=== PATIENT | female | born 1940 | race African-American/Black ===

== ENCOUNTER 2018-02-08 08:44 | Emergency (ER) | payer OTHER ==
[~2018-02-08] VITALS: Ht 30.5 cm; Wt 44.5 kg
[2018-02-08] MEDS ORDERED: SODIUM BICARBONATE 8.4% INJ 50ML SYRINGE IV ONE (08:45)
[2018-02-08] MEDS ORDERED: CALCIUM CHLOR(10%) 100MG/ML 10ML SYRINGE IV ONE (08:45)
[2018-02-08] MEDS ORDERED: EPINEPHrine HCL 1 MG/10 ML SYRG IV ONE (08:45)
[2018-02-08 08:50] VITALS: BP 137/96
[2018-02-08] MEDS ORDERED: ACETAMINOPHEN 650 MG RECT SUPP PR ONE ×2 (09:36→10:45)
[2018-02-08] MEDS ORDERED: NOREPINEPHRINE 8 MG/250ML KIT 250 ML IV ONE (09:40)
[2018-02-08 09:54] LABS: Urine Amorphous Crystal MOD /hpf (None Seen); Urine Bacteria FEW /hpf (None Seen); Urine Blood 1+ /uL (Negative); Urine Mucus FEW (None Seen); Urine Specific Gravity 1.022 (1.001-1.035); Urine WBC 6 /hpf (0 - 5); Urine WBC Clumps PRESENT /hpf (None Seen)
[2018-02-08] MEDS ORDERED: cefTRIAXone 1GM/10ml IVPUSH 10 ML IV ONE ×2 (10:17→10:45)
[2018-02-08 10:21] LABS: Hemoglobin 7.2 g/dL (12.2-16.2)
[2018-02-08 10:22] LABS: Hematocrit 25.4 % (36.0-46.0); Mean Corpuscular Hemoglobin 29.1 pg (28.0-32.0); Mean Corpuscular Hgb Conc. 28.6 g/dL (32.0-36.0); Mean Corpuscular Volume 101.7 fL (80.0-100.0); Platelet Count (auto) 137 10^3/uL (140-450); Red Blood Cells 2.49 10^6/uL (4.0-5.20); Red Cell Distribution Width 16.7 % (11.8-14.3); White Blood Cell 11.3 10^3/uL (4.4-10.8)
[2018-02-08 10:26] LABS: Basophils % (manual) 0 (0.0-2.0); Blast Cells 0; Eosinophils % (manual) 0 (0-7); Myelocytes % 0; Promyelocytes % 0; Reactive Lymphocytes 0
[2018-02-08 10:37] LABS: INR 1.75 (0.9-1.15)
[2018-02-08 10:43] LABS: BUN/Creatinine Ratio 16.5; Calcium 8.3 mg/dL (8.5-10.1); Magnesium 3.4 mg/dL (1.6-2.6); Potassium 5.2 mmol/L (3.5-5.1); Total Protein 4.5 g/dL (6.4-8.2)
[2018-02-08] MEDS ORDERED: SODIUM CHLORIDE 0.9% 3,000 ML IV ONE (10:45)
[2018-02-08] MEDS ORDERED: NOREPINEPHRINE 8 MG/250ML KIT 250 ML IV SCH (10:45)
[2018-02-08 10:57] VITALS: BP 83/46
[2018-02-08 11:18] LABS: Band Neutrophils % (manual) 7; Lymphocytes % (manual) 26 (10.0-50.0); Metamyelocytes % 3; Monocytes % (manual) 4 (0-12)
== END 2018-02-08 14:36 | disposition expired ==
LOC: EDBD 08:44 → ER 08:44 → EDSEX 08:44 → ER 14:36
DX: I46.9 Cardiac arrest, cause unspecified (principal); E11.9 Type 2 diabetes mellitus without complications; D64.9 Anemia, unspecified; E83.41 Hypermagnesemia; E43 Unspecified severe protein-calorie malnutrition; Z68.42 Body mass index [BMI] 45.0-49.9, adult; Z66 Do not resuscitate
CPT/HCPCS: 36415; 36556; 36600; 51702; 71045; 80053; 81001; 82805; 83735; 84484; 85007; 85027; 85379; 85610; 85730; 87040; 87077; 87186; 92950; 93005; 96361; 96374; 99285; J0171; J0696; J7030; 94002